=== PATIENT | female | born 1985 | race Caucasian/White ===

== ENCOUNTER → 2019-03-30 19:45 | Observation (INO) ==
[2019-03-30 12:42] LABS: Basophils # 0.1 K/mcL (0.0-0.2); Basophils % 0.5 %; Eosinophils # 0.2 K/mcL (0.0-0.6); Eosinophils % 1.6 %; Hematocrit 35.3 % (35.3-44.9); Hemoglobin 12.3 g/dL (11.5-15.4); Immature Granulocytes % 0.7 % (0-4); Lymphocytes # 1.6 K/mcL (0.6-4.6); Lymphocytes % 15.3 %; Mean Corpuscular HGB Conc 34.8 g/dL (31.6-35.5); Mean Corpuscular Hemoglobin 29.1 pg (28.0-33.3); Mean Corpuscular Volume 83.6 fL (83.0-100.0); Mean Platelet Volume 11.5 fL (9.4-12.4); Monocytes # 0.9 K/mcL (0.0-1.3); Monocytes % 8.8 %; Neutrophils # 7.8 K/mcL (1.6-8.9); Platelet Count 229 K/mcL (140-400); Red Blood Count 4.22 M/mcL (3.82-4.97); Segmented Neutrophils % 73.1 %; White Blood Count 10.7 K/mcL (4.3-11.1)
[2019-03-30 12:49] LABS: Amphetamine Screen,Urine Negative ng/mL (Cutoff=1000); Barbiturate Screen,Urine Negative ng/mL (Cutoff=200); Benzodiazepines Screen,Urine Negative ng/mL (Cutoff=200); Cannabinoid Screen,Urine Negative ng/mL (Cutoff = 50); Cocaine Screen,Urine Negative ng/mL (Cutoff= 300); Creatinine,Urine 34 mg/dL; Opiate Screen,Urine Negative ng/mL (Cutoff=300); Phencyclidine Screen,Urine Negative ng/mL (Cutoff=25); Protein/Creatinine Ratio,Urine 0.21 mg/mg (0.00-0.20)
[2019-03-30 12:59] LABS: Alanine Aminotransferase 9 Units/L (7-52); Aspartate Amino Transferase 14 Units/L (13-39); BUN/Creatinine Ratio 18 (6-26); Blood Urea Nitrogen 7 mg/dL (6-20); Lactate Dehydrogenase 125 Units/L (140-271); Uric Acid 4.2 mg/dL (2.3-7.6); eGFR For African Americans > 60 (> 60); eGFR For Non-African Americans > 60 (> 60)
[2019-03-30 14:32] LABS: Candida DNA DETECTED (Not Detect); Gardnerella DNA DETECTED (Not Detect); Trichomonas DNA Not Detected (Not Detect)
[2019-03-30 14:52] LABS: Bilirubin,Urine Negative (Negative); Blood,Urine Negative (Negative); Clarity,Urine Cloudy (Clear); Color,Urine Yellow (Yellow); Glucose,Urine (UA) Normal (Normal); Ketones,Urine Negative (Negative); Leukocyte Esterase,Urine Trace (Negative); Nitrite,Urine Negative (Negative); PH,Urine 7.5 pH Units (5.0-8.0); Protein,Urine Negative (Neg-Trace); Specific Gravity,Urine < 1.005 (1.010-1.025); Urobilinogen,Urine Normal (Normal)
[2019-03-30 14:54] LABS: Bacteria,Urine None Seen per hpf (None-Few); Hyaline Casts,Urine None Seen per lpf (None-Few); RBC,Urine 0-3 per hpf (0-3); Squamous Epithelial Cell,Urine Many per lpf (None-Few); WBC,Urine 0-3 per hpf (0-3)
--- NOTE | 2019-03-30 14:57 | OB/GYN History & Physical ---
Date of Encounter: 03/30/19 Time of Encounter: 14:54 Assessment and Plan (1) Elevated blood pressure affecting in third trimester, antepartum Current visit: Yes Status: Acute 33yo female at 33+6wks GA who presents for r/o PReE v gHTN 1. R/o PreE - normotensive, VSS, HDS - denies PASCAL/CP/SOB/difficulty breathing - labs: NATALIE, negative for PReE - given PreE precaution(s) 2. NRFWB - patient with isolated contraction(s) - two possible ,very subtle, late deceleration(s) appreciated with contraction(s) - markedly reactive before, between, and following - recommendation for patient to remain here overnight with BMZ and CEFM - patient declines staying overnight because of her children at home - discussed risks of patient being discharged to home without reassurance of well being - patient still, desired discharge to home tonight if baby appears well until 9PM - will administer BMZ today 1500, and will need to return tomorrow at 1500 for second dose of BMZ - OK for patient to eat 4hr following last deceleration (clears) 3. Hx of GDM - diet controlled - accucheck ordered for patient - OK for apple juice if blood sugar low (Clears only) DISPO: Recommended patient to stay overnight for CEFM with BMZ, but patient very much desires to be discharged tonight if baby appears well on monitor until that time. WIll CEFM patient until 9PM and assess well being. Patient given strict precaution(S) with movement. Will have patient return tomorrow for NST and second BMZ dose. MD ANKIT History of Present Illness Chief complaint: Concern for elevated BP HPI: Ms. Mcdaniel is a 33 year old female at 33+6wks GA who presents with concern for PreE. Patient of Dr. Ricks who is UTD with [facility]. Currently with no diagnosis of PreEclampsia or gHTN. Patient reported to not feel well today with elevated BP at home. Patient was told to present to labor and delivery for r/o PreE and reassurance of well-being. The patient denied n/v/d. Denies VB/LOF/contraction(s). Hx of 2 prior . complicated by history of GDM. Denies PASCAL/CP/SOB/upper R quadrant pain. No increased swelling in upper or lower extremities. Past Med Surg Social Fam HX - Past Medical History Medical history: migraine Psychiatric history: no psych history - Past Surgical History Surgical History: no surgical history - Social History Smoking Status: Never smoker Smokeless Tobacco Status: No Alcohol use: none Drug use: none - Family History Father Hx Family Cardiac Disorders: Yes (HTN) Mother Hx Family Psychosocial Disorders: Yes (Social Anxiety) Obstetrical History - Pregnancies : 4 Para: 2 Term: 2 : 0 Ab's: 1 Livin Medications and Allergies Calcium Carbonate [Calcium] 500 mg PO DAILY 03/30/19 [History] Methyldopa [Aldomet] 250 mg PO BID 03/30/19 [History] 19 Tablet 1 tab PO DAILY 03/30/19 [History] Allergy/AdvReac Type Severity Reaction Status Date / Time Labetalol Allergy Difficulty Verified 03/30/19 12:07 Breathing Exam - Constitutional Constitutional: well developed, well nourished, no acute distress, average body habitus - HEENT HEENT: Normocephaly, Mucus Membranes Moist - Neck Neck exam: full ROM - Lungs Respiratory exam: CTAB - Cardiovascular Cardiovascular exam: RRR - Abdomen Abdomen: Present: bowel sounds normal - Extremities Extremities exam: normal inspection Deep Tendon Reflex Grade: 2+ Normal - Vagina Vagina: Present: normal moisture - Uterus Uterus exam: Present: normal size, normal contour - Anus/Rectum Anus/Rectum: Present: normal perianal skin, heme negative Results Result Diagrams: 03/30/19 12:25 03/30/19 12:25 Abnormal lab results 0.39 mg/dL (0.60-1.20) L 03/30/19 12:25 125 Units/L (140-271) L 03/30/19 12:25 Protein/Creatinin Ratio 0.21 mg/mg (0.00-0.20) H 03/30/19 12:25 Catrina species DNA DETECTED (Not Detect) A 03/30/19 13:30 DETECTED (Not Detect) A 03/30/19 13:30 All other labs normal. - VTE Reasons for not Prescribing Prophylaxis: Treatment not Indicated - Low risk for VTE
--- NOTE | 2019-03-30 18:12 | Event Note ---
Date of Encounter: 03/30/19 Time of Encounter: 18:12 Culture positive for BV and yeast. Rx prescribed. MD ANKIT
[~2019-03-30 19:45] MED LIST: Betamethasone Acet/SodPhos 30 MG/5 ML VIAL IM SCH; Fluconazole 100 MG TABLET PO ONE; Ringers Solution, Lactated 1,000 ML IVC ONE; Ringers Solution, Lactated 1,000 ML ONE; metroNIDAZOLE 500 MG TABLET PO SCH
== END | disposition home or self-care (01) ==
LOC: 1NENULAB
PROVIDERS: ADMIT Registered Nurse; ATTEND Registered Nurse

== ENCOUNTER → 2019-04-10 17:05 | Observation (INO) ==
[2019-04-10 15:25] LABS: Basophils % 0.4 %; Eosinophils # 0.1 K/mcL (0.0-0.6); Eosinophils % 0.9 %; Hematocrit 34.9 % (35.3-44.9); Hemoglobin 11.8 g/dL (11.5-15.4); Immature Granulocytes % 0.8 % (0-4); Lymphocytes # 1.4 K/mcL (0.6-4.6); Lymphocytes % 14.2 %; Mean Corpuscular HGB Conc 33.8 g/dL (31.6-35.5); Mean Corpuscular Hemoglobin 28.6 pg (28.0-33.3); Mean Corpuscular Volume 84.7 fL (83.0-100.0); Mean Platelet Volume 11.6 fL (9.4-12.4); Monocytes # 0.6 K/mcL (0.0-1.3); Monocytes % 6.2 %; Neutrophils # 7.7 K/mcL (1.6-8.9); Platelet Count 225 K/mcL (140-400); Red Blood Count 4.12 M/mcL (3.82-4.97); Red Cell Distribution Width 12.9 % (11.5-14.5); Segmented Neutrophils % 77.5 %; White Blood Count 9.9 K/mcL (4.3-11.1)
[2019-04-10 15:50] LABS: Alanine Aminotransferase 8 Units/L (7-52); Aspartate Amino Transferase 13 Units/L (13-39); BUN/Creatinine Ratio 21 (6-26); Blood Urea Nitrogen 10 mg/dL (6-20); Lactate Dehydrogenase 131 Units/L (140-271); eGFR For African Americans > 60 (> 60); eGFR For Non-African Americans > 60 (> 60)
[2019-04-10 15:55] LABS: Amphetamine Screen,Urine Negative ng/mL (Cutoff=1000); Barbiturate Screen,Urine Negative ng/mL (Cutoff=200); Benzodiazepines Screen,Urine Negative ng/mL (Cutoff=200); Cannabinoid Screen,Urine Negative ng/mL (Cutoff = 50); Cocaine Screen,Urine Negative ng/mL (Cutoff= 300); Opiate Screen,Urine Negative ng/mL (Cutoff=300); Phencyclidine Screen,Urine Negative ng/mL (Cutoff=25)
[2019-04-10 16:46] LABS: Protein/Creatinine Ratio,Urine 0.18 mg/mg (0.00-0.20)
--- NOTE | 2019-04-10 16:56 | OB/GYN Progress Note ---
Date of Encounter: 04/10/19 Time of Encounter: 13:45 - Assessment and Plan (1) Elevated blood pressure affecting in third trimester, antepartum Current Visit: No Status: Acute Subjective - Subjective Principal diagnosis: Dizziness, elevated blood pressure and decreased movement Interval history: Margaret is a 33-year-old female who presented to labor and delivery with complaint of decreased movement headache and contractions. Patient was sent over from the office with decreased movement on NST. Patient has a history of chronic hypertension. She is currently on Aldomet. She has an allergy to labetalol and cannot take this. She is doing well other than this. Patient presented today her blood pressures are within normal range. We had a long discussion today about staying at bedrest until after 37 weeks so we can keep this baby in. She does understand this. Her was present for this conversation. All labs are drawn and came back normal. We are still waiting on some. Patient states blood pressures at home or the 150s over 90s. On labor and delivery blood pressures much lower 110-120 range for systolics. Today she denies headaches or visual changes or epigastric pain. Baby is very active. We do have reactive NST with occasional contraction. Patient does have follow-up appointment scheduled in the office. Cervix was not checked this patient was not enoc, and she was checked in the office. Antepartum ROS: new complaints Objective - Vital Signs Vital Signs: Intake and Output 04/10/19 04/10/19 04/10/19 07:59 15:59 23:59 Other: Weight 72.2 kg Patient Weight 04/10/19 23:59 Weight 72.2 kg - Exam FHR: category 1 Abdomen: Present: normal appearance Uterus: Present: normal - Labs Labs: Abnormal lab results Hct 34.9 % (35.3-44.9) L 04/10/19 14:52 0.47 mg/dL (0.60-1.20) L 04/10/19 14:52 131 Units/L (140-271) L 04/10/19 14:52
--- NOTE | 2019-04-10 17:00 | Discharge Summary ---
Date of Encounter: 04/10/19 Time of Encounter: 17:00 - Discharge Diagnosis (1) Elevated blood pressure affecting in third trimester, antepartum Priority: Primary Status: Acute - Discharge Medications Prescriptions: No Action 19 Tablet 1 tab PO DAILY Methyldopa [Aldomet] 250 mg PO BID Calcium Carbonate [Calcium] 500 mg PO DAILY Home Medications: Calcium Carbonate [Calcium] 500 mg PO DAILY 03/30/19 [History] Methyldopa [Aldomet] 250 mg PO BID 03/30/19 [History] 19 Tablet 1 tab PO DAILY 03/30/19 [History] Allergies/Adverse Reactions: Allergy/AdvReac Type Severity Reaction Status Date / Time Labetalol Allergy Difficulty Verified 03/30/19 12:07 Breathing betamethasone AdvReac Vomiting Verified 04/10/19 14:24 Data Procedures and tests throughout hospitalization: Laboratory Tests 04/10/19 04/10/19 04/10/19 14:45 14:45 14:52 WBC 9.9 RBC 4.12 Hgb 11.8 Hct 34.9 L MCV 84.7 MCH 28.6 MCHC 33.8 RDW 12.9 Plt Count 225 MPV 11.6 Immature Gran % 0.8 Seg Neutrophils % 77.5 Lymphocytes % 14.2 Monocytes % 6.2 Eosinophils % 0.9 Basophils % 0.4 Neutrophils # 7.7 Lymphocytes # 1.4 Monocytes # 0.6 Eosinophils # 0.1 Basophils # 0.0 BUN Creatinine Est GFR ( Amer) Est GFR (Non-Af Amer) BUN/Creatinine Ratio Uric Acid AST ALT Lactate Dehydrogenase Urine Creatinine 40 Protein/Creatinin Ratio 0.18 Urine Total Protein 7 Urine Opiates Screen Negative Ur Buprenorphine Scrn Negative Ur Barbiturates Screen Negative Ur Phencyclidine Scrn Negative Ur Amphetamines Screen Negative U Benzodiazepines Scrn Negative Urine Cocaine Screen Negative U Marijuana (THC) Screen Negative Ur Drug Screen Interp See Below 04/10/19 14:52 WBC RBC Hgb Hct MCV MCH MCHC RDW Plt Count MPV Immature Gran % Seg Neutrophils % Lymphocytes % Monocytes % Eosinophils % Basophils % Neutrophils # Lymphocytes # Monocytes # Eosinophils # Basophils # BUN 10 Creatinine 0.47 L Est GFR ( Amer) > 60 Est GFR (Non-Af Amer) > 60 BUN/Creatinine Ratio 21 Uric Acid 5.0 AST 13 ALT 8 Lactate Dehydrogenase 131 L Urine Creatinine Protein/Creatinin Ratio Urine Total Protein Urine Opiates Screen Ur Buprenorphine Scrn Ur Barbiturates Screen Ur Phencyclidine Scrn Ur Amphetamines Screen U Benzodiazepines Scrn Urine Cocaine Screen U Marijuana (THC) Screen Ur Drug Screen Interp Labs on day of discharge: Labs from last 24 hours 04/10/19 04/10/19 04/10/19 14:52 14:52 14:45 WBC 9.9 RBC 4.12 Hgb 11.8 Hct 34.9 L MCV 84.7 MCH 28.6 MCHC 33.8 RDW 12.9 Plt Count 225 MPV 11.6 Immature Gran % 0.8 Seg Neutrophils % 77.5 Lymphocytes % 14.2 Monocytes % 6.2 Eosinophils % 0.9 Basophils % 0.4 Neutrophils # 7.7 Lymphocytes # 1.4 Monocytes # 0.6 Eosinophils # 0.1 Basophils # 0.0 BUN 10 Creatinine 0.47 L Est GFR ( Amer) > 60 Est GFR (Non-Af Amer) > 60 BUN/Creatinine Ratio 21 Uric Acid 5.0 AST 13 ALT 8 Lactate Dehydrogenase 131 L Urine Creatinine 40 Protein/Creatinin Ratio 0.18 Urine Total Protein 7 Urine Opiates Screen Ur Buprenorphine Scrn Ur Barbiturates Screen Ur Phencyclidine Scrn Ur Amphetamines Screen U Benzodiazepines Scrn Urine Cocaine Screen U Marijuana (THC) Screen Ur Drug Screen Interp 04/10/19 14:45 WBC RBC Hgb Hct MCV MCH MCHC RDW Plt Count MPV Immature Gran % Seg Neutrophils % Lymphocytes % Monocytes % Eosinophils % Basophils % Neutrophils # Lymphocytes # Monocytes # Eosinophils # Basophils # BUN Creatinine Est GFR ( Amer) Est GFR (Non-Af Amer) BUN/Creatinine Ratio Uric Acid AST ALT Lactate Dehydrogenase Urine Creatinine Protein/Creatinin Ratio Urine Total Protein Urine Opiates Screen Negative Ur Buprenorphine Scrn Negative Ur Barbiturates Screen Negative Ur Phencyclidine Scrn Negative Ur Amphetamines Screen Negative U Benzodiazepines Scrn Negative Urine Cocaine Screen Negative U Marijuana (THC) Screen Negative Ur Drug Screen Interp See Below Date of admission: 04/10/19 13:42 Primary care physician: Sami Carroll DO - Patient Status Disposition: Still a Patient Condition: Good Functional capacity at discharge: independent ambulation Overall status at discharge: patient is back to baseline - Discharge Instructions Follow Up With: Sami Carroll DO [Primary Care Provider] - Additional Instructions: modified bedrest - Diet and Activity Activity: other (Modified bedrest was discussed) Diet: regular diet Hospital Course [employer] Time Attestation: Total time spent providing and/or coordinating discharge services: Exam - Constitutional General appearance IM: A&O X 3, pleasant, no acute distress - Respiratory Respiratory exam: Present: CTAB - Cardiovascular Cardiovascular exam IM: Present: RRR - GI/Abdominal GI/Abdominal exam IM: normal bowel sounds - External exam: normal external exam Uterine Tone: Firm With Massage - Extremities Exam Extremities exam IM: Present: full ROM - VTE Reasons for not Prescribing Prophylaxis: Treatment not Indicated - Low risk for VTE
== END | disposition still patient (30) ==
LOC: 1NENULAB
PROVIDERS: ADMIT Registered Nurse; ATTEND Registered Nurse